=== PATIENT | male | born 1985 | race Caucasian/White ===

== ENCOUNTER 2017-02-20 06:00 | Emergency (ER) | payer SELFPAY ==
[~2017-02-20] VITALS: Ht 180.3 cm; Wt 120.0 kg
[2017-02-20 06:01] VITALS: BP 141/102; PULSE 128; RESP 16; TEMP 100.6; O2SAT 98
[2017-02-20 06:23] VITALS: BP 148/87; PULSE 105; RESP 18; TEMP 100.4; O2SAT 97
[2017-02-20 06:26] VITALS: O2SAT 98
[2017-02-20] MEDS ORDERED: diphenhydrAMINE HCL 50 MG/ML VIAL IVP ONE (06:45)
[2017-02-20] MEDS ORDERED: ACETAMINOPHEN 325 MG TAB PO ONE (06:45)
[2017-02-20] MEDS ORDERED: SODIUM CHLORIDE 0.9% FLUSH 10 ML FLUSH IV FLUSH PRN (06:45)
[2017-02-20] MEDS ORDERED: FAMOTIDINE 20 MG/2 ML VIAL IV PUSH ONE (06:45)
--- NOTE | 2017-02-20 06:51 | PD ---
HPI Chief Complaint: Allergic/Adverse Reaction Time Seen by Provider: 06:33 Travel History International Travel<30 days: No Contact w/Intl Traveler<30days: No Traveled to known affect area: No History of Present Illness HPI 31-year-old male presents to the emergency department by private transportation for complaint of swelling noted to the upper lip. Patient states after eating Cajun spiced boiled peanuts last night he noticed some tingling in his lip and then noted some midline swelling of the upper lip. Patient states this occurred around 8 PM. Patient states he took no medications because he did not have any Benadryl at home. Patient states that there is been no change in the swelling from 10 PM last night until this morning so finally decided to come to the emergency room to be evaluated. Patient reports he thought the swelling of resolve on its own. Patient's had no lower lip swelling tongue swelling no throat swelling no difficulty with swallowing or breathing. Patient's had no wheezing or shortness of breath. Patient has had no chest pain or palpitations near-syncope or syncope. Patient also denies any abdominal cramping nausea vomiting or diarrhea. Patient denies any urticaria. Patient has had no previous adverse reaction to peanut ingestion. Patient was also noted upon arrival to the emergency department to have mild temperature elevation at home reportedly his temperature was 10 1F. Patient did not take any medication to manage his temperature elevation such as acetaminophen or ibuprofen either. Patient denies any recent febrile illness or respiratory illness or cold symptoms and did have the flu vaccine for this season. Patient denies headache sinus pressure drainage sore throat earache cough congestion shortness of breath wheezing abdominal pain vomiting diarrhea dysuria frequency urgency flank pain hematuria joint pain swelling or skin rash. Patient is unable to identify exacerbating or alleviating factors. Patient denies any chronic medical conditions. The patient rates his pain 0/10 intensity. PFSH Past Medical History Narrative Medical High cholesterol hypertension; vapor cigarettes and dipping tobacco use; nursing notes reviewed High Cholesterol: Yes Hypertension: Yes Past Surgical History Surgical History: No Previous Surgery Social History Alcohol Use: Yes (occ) Tobacco Use: Yes (DIP AND VAPE) Substance Use: No Allergies-Medications (Allergen,Severity, Reaction): Coded Allergies: methylprednisolone (Unverified Allergy, Intermediate, Rash, 02/20/17) Reported Meds & Prescriptions Reported Meds & Active Scripts Active No Active Prescriptions or Reported Medications Review of Systems Except as stated in HPI: all other systems reviewed are Neg General / Constitutional: Positive: Fever, No: Chills (at home) HENT: No: Headaches, Sore Throat, Rhinorrhea, Congestion, Neck Stiffness, Neck Pain, Ear Discharge, Earache Cardiovascular: No: Chest Pain or Discomfort, Palpitations, Diaphoresis, Syncope Respiratory: No: Cough, Shortness of Breath, Wheezing, Sneezing, Pleuritic Pain Gastrointestinal: No: Nausea, Vomiting, Diarrhea, Abdominal Pain Genitourinary: No: Urgency, Frequency, Dysuria, Flank Pain Musculoskeletal: No: Myalgias, Arthralgias Skin: No Rash, No Itching, No Hives Neurologic: No: Weakness, Dizziness, Syncope, Focal Abnormalities, Coordination Problem Psychiatric: No: Anxiety Hematologic/Lymphatic: No: Lymph Node Enlargement Physical Exam Narrative GENERAL: Well-developed well-nourished male in no acute distress no respiratory distress; no stridor or hoarseness. Temperature: 100.4F SKIN: Warm and dry. No urticaria. HEAD: Normocephalic. EYES: No scleral icterus. No injection or drainage. ENT: Mucous membranes moist , airway is patent, no posterior pharyngeal erythema edema or exudative change no tongue swelling mild midline swelling of the upper lip; tympanic membranes no redness no dullness to loss of landmarks. NECK: Supple, trachea midline. No JVD or lymphadenopathy. CARDIOVASCULAR: Increased Regular rate and rhythm without murmurs, gallops, or rubs. RESPIRATORY: Breath sounds equal bilaterally. No accessory muscle use. No wheezing clear to auscultation. GASTROINTESTINAL: Abdomen soft, non-tender, nondistended. No guarding or rebound. MUSCULOSKELETAL: No cyanosis, or edema. BACK: Nontender without obvious deformity. No CVA tenderness. Data Data Last Documented VS Vital Signs Date Time Temp Pulse Resp B/P (MAP) Pulse Ox O2 Delivery O2 Flow Rate FiO2 02/20/17 06:26 98 Room Air 02/20/17 06:23 100.4 105 18 Orders Orders Iv Access Insert/Monitor (02/20/17 06:24) Oximetry (02/20/17 06:24) Basic Metabolic Panel (Bmp) (02/20/17 06:33) Complete Blood Count With Diff (02/20/17 06:33) Ecg Monitoring (02/20/17 06:33) Diphenhydramine Inj (Benadryl Inj) (02/20/17 06:45) Famotidine Inj (Pepcid Inj) (02/20/17 06:45) Sodium Chloride 0.9% Flush (Ns Flush) (02/20/17 06:45) Acetaminophen (Tylenol) (02/20/17 06:45) Labs Laboratory Tests Test 02/20/17 06:35 White Blood Count 10.8 TH/MM3 Red Blood Count 5.29 MIL/MM3 Hemoglobin 15.8 GM/DL Hematocrit 45.2 % Mean Corpuscular Volume 85.5 FL Mean Corpuscular Hemoglobin 29.8 PG Mean Corpuscular Hemoglobin Concent 34.9 % Red Cell Distribution Width 13.2 % Platelet Count 182 TH/MM3 Mean Platelet Volume 9.0 FL Neutrophils (%) (Auto) 66.9 % Lymphocytes (%) (Auto) 23.3 % Monocytes (%) (Auto) 8.6 % Eosinophils (%) (Auto) 0.7 % Basophils (%) (Auto) 0.5 % Neutrophils # (Auto) 7.3 TH/MM3 Lymphocytes # (Auto) 2.5 TH/MM3 Monocytes # (Auto) 0.9 TH/MM3 Eosinophils # (Auto) 0.1 TH/MM3 Basophils # (Auto) 0.1 TH/MM3 CBC Comment DIFF FINAL Differential Comment MDM Medical Decision Making Medical Screen Exam Complete: Yes Emergency Medical Condition: Yes Medical Record Reviewed: Yes Differential Diagnosis Focal allergic reaction, angioedema, febrile illness Narrative Course IV access obtained patient placed on ekg monitor and continuous pulse oximetry CBC basic metabolic panel obtained patient administered At 7:10 AM care signed over to Dr. Liu Scripts No Active Prescriptions or Reported Meds Raysa Casey MD Feb 20, 2017 06:51
[2017-02-20 06:55] LABS: AUTOMATED NEUTROPHIL # 7.3 TH/MM3 (1.8-7.7); BASOPHIL # 0.1 TH/MM3 (0-0.2); BASOPHIL % 0.5 % (0.0-2.0); EOSINOPHIL # 0.1 TH/MM3 (0-0.4); EOSINOPHIL % 0.7 % (0.0-4.0); HEMATOCRIT 45.2 % (39.0-51.0); HEMO FLAGS DIFF FINAL; LYMPH % 23.3 % (9.0-44.0); LYMPHOCYTE # 2.5 TH/MM3 (1.0-4.8); MEAN CELL VOLUME 85.5 FL (80.0-100.0); MEAN CORPUSCULAR HEMOGLOBIN 29.8 PG (27.0-34.0); MEAN CORPUSCULAR HGB CONC 34.9 % (32.0-36.0); MONO % 8.6 % (0.0-8.0); NEUT % 66.9 % (16.0-70.0); PLATELET COUNT 182 TH/MM3 (150-450); RED BLOOD COUNT 5.29 MIL/MM3 (4.50-5.90); RED CELL DISTRIBUTION WIDTH 13.2 % (11.6-17.2); WHITE BLOOD COUNT 10.8 TH/MM3 (4.0-11.0)
[2017-02-20 07:25] LABS: BICARBONATE 26.1 MEQ/L (21.0-32.0); POTASSIUM 3.9 MEQ/L (3.5-5.1)
[2017-02-20] MEDS ORDERED: CEPH-460 PO (07:41)
--- NOTE | 2017-02-20 07:42 | PD ---
Physical Exam Narrative GENERAL: Well-developed well-nourished male in no acute distress without respiratory distress or stridor SKIN: Warm and dry. No urticaria. HEAD: Normocephalic. EYES: No scleral icterus. No injection or drainage. ENT: Mucous membranes moist , airway is patent, no tongue swelling, mild midline swelling of the upper lip without induration; NECK: Supple, trachea midline CARDIOVASCULAR: Regular rate and rhythm RESPIRATORY:No accessory muscle use. MUSCULOSKELETAL: No edema. NEUROLOGICAL: Awake and alert. Motor and sensory grossly within normal limits. Normal speech. Data Data Last Documented VS Vital Signs Date Time Temp Pulse Resp B/P (MAP) Pulse Ox O2 Delivery O2 Flow Rate FiO2 02/20/17 07:44 99.0 93 18 120/78 (92) 95 Room Air Orders Orders Iv Access Insert/Monitor (02/20/17 06:24) Oximetry (02/20/17 06:24) Basic Metabolic Panel (Bmp) (02/20/17 06:33) Complete Blood Count With Diff (02/20/17 06:33) Ecg Monitoring (02/20/17 06:33) Diphenhydramine Inj (Benadryl Inj) (02/20/17 06:45) Famotidine Inj (Pepcid Inj) (02/20/17 06:45) Sodium Chloride 0.9% Flush (Ns Flush) (02/20/17 06:45) Acetaminophen (Tylenol) (02/20/17 06:45) Ed Discharge Order (02/20/17 07:48) Labs Laboratory Tests Test 02/20/17 06:35 White Blood Count 10.8 TH/MM3 Red Blood Count 5.29 MIL/MM3 Hemoglobin 15.8 GM/DL Hematocrit 45.2 % Mean Corpuscular Volume 85.5 FL Mean Corpuscular Hemoglobin 29.8 PG Mean Corpuscular Hemoglobin Concent 34.9 % Red Cell Distribution Width 13.2 % Platelet Count 182 TH/MM3 Mean Platelet Volume 9.0 FL Neutrophils (%) (Auto) 66.9 % Lymphocytes (%) (Auto) 23.3 % Monocytes (%) (Auto) 8.6 % Eosinophils (%) (Auto) 0.7 % Basophils (%) (Auto) 0.5 % Neutrophils # (Auto) 7.3 TH/MM3 Lymphocytes # (Auto) 2.5 TH/MM3 Monocytes # (Auto) 0.9 TH/MM3 Eosinophils # (Auto) 0.1 TH/MM3 Basophils # (Auto) 0.1 TH/MM3 CBC Comment DIFF FINAL Differential Comment Blood Urea Nitrogen 8 MG/DL Creatinine 1.11 MG/DL Random Glucose 107 MG/DL Calcium Level 8.2 MG/DL Sodium Level 135 MEQ/L Potassium Level 3.9 MEQ/L Chloride Level 102 MEQ/L Carbon Dioxide Level 26.1 MEQ/L Anion Gap 7 MEQ/L Estimat Glomerular Filtration Rate 78 ML/MIN MDM Supervised Visit with RK: No Interpretation(s) CBC & BMP Diagram 02/20/17 06:35 Calcium Level 8.2 L Narrative Course Signed over to me to follow BMP and if normal and no change in exam patient could go home on Keflex for possible early cellulitis of upper lip with swelling and fever without associated abscess, bmp without emergent findings, Patient denies any new complaints and states that they are feeling better. Patient happy with care, all questions answered. Patient knows that follow up is incumbent on them and to return to the emergency room immediately if new or worsening symptoms develop. Patient given strict return precautions, vitals reviewed and are normal, agrees to further workup as an outpatient. Diagnosis Primary Impression: Lip swelling Additional Impression: Fever Qualified Codes: R50.9 - Fever, unspecified Patient Instructions: General Instructions Additional Instruction: alternate tylenol and motrin, follow with primary tommorrow, return as needed Med/Other Pt SpecificInfo: Prescription(s) given Scripts Cephalexin (Keflex) 500 Mg Capsule 500 MG PO TID for Infection for 7 Days, CAP 0 Refills Prov: Leeann Liu MD 02/20/17 Disposition: 01 DISCHARGE HOME Condition: Stable Leeann Liu MD Feb 20, 2017 07:41
[2017-02-20 07:44] VITALS: BP 120/78; PULSE 93; RESP 18; TEMP 99; O2SAT 95
== END 2017-02-20 08:10 | disposition home or self-care (01) ==
LOC: NEPC 06:00
DX: R22.0 Localized swelling, mass and lump, head (principal); R50.9 Fever, unspecified; E78.00 Pure hypercholesterolemia, unspecified; I10 Essential (primary) hypertension; F17.290 Nicotine dependence, other tobacco product, uncomplicated; Z88.8 Allergy status to other drugs, medicaments and biological substances
CPT/HCPCS: 80048; 85025; 96374; 96375; 99285; J1200